=== PATIENT | male | born 1930 | race Hispanic/Latino ===

== ENCOUNTER 2019-05-10 11:07 | Day surgery (SDC) | payer OTHER ==
[2019-05-08 12:23] LABS: BASOPHILS % (AUTO) 1.1 % (0.0-5.0); EOSINOPHILS % (AUTO) 3.7 % (0.0-8.0); HEMATOCRIT 36.7 % (42-54); LYMPHOCYTES % (AUTO) 20.7 % (21.0-51.0); MEAN CORPUSCULAR HEMOGLOBIN 28.8 pg (27.0-33.0); MEAN CORPUSCULAR HGB CONC 33.5 g/dL (32.0-36.0); MONOCYTES % (AUTO) 7.6 % (3.0-13.0); NEUTROPHILS % (AUTO) 66.9 % (40.0-77.0); NUCLEATED RED BLOOD CELLS 0.1 % (0.0-0.19); PLATELET COUNT (AUTO) 163 K/uL (130-400); RED BLOOD CELL COUNT(AUTO) 4.27 MIL/uL (4.50-6.20); WHITE BLOOD COUNT (AUTO) 5.3 K/uL (4.8-10.8)
[2019-05-08 12:31] VITALS: BP 177/84
[2019-05-08 12:49] LABS: INR 1.02 (0.85-1.15); PROTHROMBIN TIME 10.7 SEC (9.6-11.6)
[2019-05-08 13:04] LABS: POTASSIUM 4.3 mmol/L (3.5-5.1)
[~2019-05-10] VITALS: Ht 165.1 cm; Wt 58.2 kg
[2019-05-10] VITALS (10 sets, daily range): BP systolic 139–160; BP diastolic 48–76
[~2019-05-10 11:07] MED LIST: AMLO10TA7 PO; ASPI-555 PO; PRAV10TA39 PO; SODIUM CHLORIDE 0.9% 1000ML 1,000 ML IV SCH; TAMS-1 PO
--- NOTE | 2019-05-10 12:01 | NUR ---
ASSESSMENT PT HERE FOR BATTERY CHANGEOUT. DENIES ANY PAIN, SOB. AT BEDSIDE.
[2019-05-10] MEDS ORDERED: LIDOCAINE HCL 1% MDV 50ML VIAL ONE (12:33)
[2019-05-10] MEDS ORDERED: BUPIVACAINE/PF 0.25% 30ML VIAL IJ ONE (12:34)
--- NOTE | 2019-05-10 12:43 | NUR ---
PROCEDURE PT TAKEN TO PROCEDURE VIA [employer]. AT BEDSIDE.
[2019-05-10] MEDS ORDERED: CEFAZOLIN SODIUM 1 GM VIAL ONE (12:53)
[2019-05-10] MEDS ORDERED: ACETAMINOPHEN 325 MG TAB PO PRN (13:45)
--- NOTE | 2019-05-10 13:55 | NUR ---
PROCEDURE PT HERE FROM PROCEDURE. AAOX3. SITE TO LEFT UPPER CHEST SOFT TO TOUCH. NO BLEEDING, OOZING NOTED TO SITE. ICE PACK APPLIED TO LEFT UPPER CHEST. PT INSTRUCTED ON IMPORTANCE OF BEING ON BEDREST FOR 3 HOURS. VERBALIZED UNDERSTANDING.
--- NOTE | 2019-05-10 14:10 | NUR ---
SITE CHECK SITE TO LEFT UPPER CHEST SOFT TO TOUCH. NO BLEEDING, OOZING NOTED TO SITE. ICE PACK IN PLACE
--- NOTE | 2019-05-10 14:26 | NUR ---
SITE CHECK SITE TO LEFT UPPER CHEST SOFT TO TOUCH. NO BLEEDING, OOZING NOTED TO SITE. ICE PACK IN PLACE
--- NOTE | 2019-05-10 14:40 | NUR ---
SITE CHECK SITE TO LEFT UPPER CHEST SOFT TO TOUCH. NO BLEEDING, OOZING NOTED TO SITE. ICE PACK IN PLACE
--- NOTE | 2019-05-10 14:55 | NUR ---
SITE CHECK SITE TO LEFT UPPER CHEST SOFT TO TOUCH. NO BLEEDING, OOZING NOTED TO SITE. ICE PACK IN PLACE
--- NOTE | 2019-05-10 15:25 | NUR ---
SITE CHECK SITE TO LEFT UPPER CHEST SOFT TO TOUCH. NO BLEEDING, OOZING NOTED TO SITE. ICE PACK IN PLACE
--- NOTE | 2019-05-10 15:59 | NUR ---
SITE CHECK SITE TO LEFT UPPER CHEST SOFT TO TOUCH. NO BLEEDING, OOZING NOTED TO SITE. ICE PACK IN PLACE
--- NOTE | 2019-05-10 16:30 | NUR ---
SITE CHECK SITE TO LEFT UPPER CHEST SOFT TO TOUCH. NO BLEEDING, OOZING NOTED TO SITE. ICE PACK IN PLACE
== END 2019-05-10 17:15 | disposition home or self-care (01) ==
LOC: DAH 11:07
PROVIDERS: ATTEND Internal Medicine Cardiovascular Disease
DX: Z45.010 Encounter for checking and testing of cardiac pacemaker pulse generator [battery] (principal); R00.1 Bradycardia, unspecified; I25.10 Atherosclerotic heart disease of native coronary artery without angina pectoris; I12.9 Hypertensive chronic kidney disease with stage 1 through stage 4 chronic kidney disease, or unspecified chronic kidney disease; N18.3 Chronic kidney disease, stage 3 (moderate); E78.5 Hyperlipidemia, unspecified; F15.90 Other stimulant use, unspecified, uncomplicated; Z79.899 Other long term (current) drug therapy; Z87.891 Personal history of nicotine dependence; Z79.2 Long term (current) use of antibiotics; Z95.5 Presence of coronary angioplasty implant and graft; Z82.49 Family history of ischemic heart disease and other diseases of the circulatory system; Z79.01 Long term (current) use of anticoagulants
CPT/HCPCS: 33228; 36415; 80048; 85025; 85610; 85730; 93005; A4606; C1785; J0690; J3490 ×2; J7030